=== PATIENT | male | born 1950 | race Caucasian/White ===

== ENCOUNTER 2018-12-23 12:07 | Emergency (ER) ==
[2018-12-23 12:18] VITALS: BP 150/81; TEMP 99.9
[2018-12-23 12:35] VITALS: BMI 35.6
--- NOTE | 2018-12-23 12:55 | DI ---
EXAM: Three views of the right elbow. History: Right elbow trauma. Findings: Suboptimal lateral view. No acute fracture or dislocation. Mild narrowing of the elbow j oint with small osteophytes. No radiopaque foreign bodies. No obvious joint effusion. Impression: No acute osseous abnormality
--- NOTE | 2018-12-23 13:25 | CT ---
EXAM: CT of the head without contrast History: Head trauma. Technique: Multiplanar CT images through the head were obtained without the administration of IV con trast Findings: The visualized paranasal sinuses and mastoid air cells are clear in general. No acute inga varial abnormalities. Intracranially the ventricular and cisternal spaces are normal in size, shape and configuration for a patient of this age. No dominant mass or midline shift. No hydrocephalous. No acute intracranial hemorrhage. Benign CSF containing space within the posterior fossa could represent arachnoid cyst or a constanza cisterna magna, a developmental variant. Impression: No acute intracranial process
--- NOTE | 2018-12-23 13:32 | CT ---
EXAM: CT of the chest without contrast History: Chest trauma. Technique: Multiplanar CT images through the thorax were obtained without the administration of IV c ontrast Findings: Heart is borderline enlarged. No pericardial effusion. Coronary calcifications. Sternot ashley wires. No axillary lymphadenopathy. No pathologically enlarged mediastinal lymph nodes. Evalua tion for hilar lymph nodes is limited due to the lack of contrast administration. No pneumothorax. There is left-sided pleural thickening or scarring with associated areas of plate-like atelectasis. No acute infiltrates. Within the visualized upper abdomen. No acute findings. No acute osseous abnormalities. Right shou lder arthroplasty. Impression: 1. No acute traumatic injury identified within the thorax. 2. Chronic left pleural thickening or scarring with associated areas of adjacent subsegmental atelec tasis.
--- NOTE | 2018-12-23 13:37 | CT ---
EXAM: CT of the cervical spine without contrast History: Head and neck trauma. Technique: Multiplanar CT images through the cervical spine were obtained without the administration of IV contrast Findings: The upper lungs are clear. Visualized airway remains patent. Atherosclerotic vascular ca lcifications. No acute fracture or subluxation of the cervical spine. No prevertebral soft tissue swelling. Prede ntal space is not widened. Severe disc space narrowing at C5-6 and C6-7 with endplate sclerosis and osteophyte formation. Moderate to severe disc space narrowing C3-4. Bony spinal canal is not signif icantly compromised. Moderate to severe multilevel bilateral bony neural foraminal narrowing seconda ry to uncovertebral and facet hypertrophy. Impression: No acute osseous abnormality of the cervical spine. Degenerative changes
--- NOTE | 2018-12-23 13:39 | CT ---
EXAM: CT of the pelvis without contrast History: Pelvic trauma. Technique: Multiplanar CT images through the pelvis were obtained without the administration of IV c ontrast Findings: Colonic diverticulosis. The appendix is normal. No perirectal inflammation. Prostate is not enlarged. Multiple bladder diverticuli with the largest measuring 3.4 cm posteriorly. No acute fracture or dislocation. Degenerative changes within the lower lumbar spine. Impression: 1. No acute osseous abnormality. 2. Multiple bladder diverticula. 3. Colonic diverticulosis
--- NOTE | 2018-12-23 13:42 | CT ---
Exam: CT thoracic spine HISTORY: Fell yesterday. Procedures: 3 mm contiguous axial images were obtained through the thoracic spine without the use of contrast. Sagittal and coronal reformatted images were also created and reviewed. Findings: The thoracic spine demonstrates diffuse multilevel degenerative disease with no acute frac ture or listhesis. There is no osseous erosion or radiodense foreign body. Please refer to the dedi cated CT chest for details regarding any tissues beyond the thoracic spine. There is no paraspinal f luid collection. No central spinal canal stenosis is visualized. There is no significant neural for aminal stenosis. Impressions: Multilevel mild degenerative disease in the thoracic spine with no acute fracture or li sthesis. Findings were faxed to the emergency department at 1:25 p.m.
--- NOTE | 2018-12-23 13:42 | CT ---
EXAM: CT of the lumbar spine without contrast History: Lower back trauma. Comparison: CT thoracic spine 12/23/2018 Technique: Multiplanar CT images through the lumbar spine were obtained without the administration o f IV contrast Findings: Colonic diverticulosis. Multiple bladder diverticuli. Atherosclerotic vascular calcifica tions. No acute fracture or subluxation of the lumbar spine. Severe disc space narrowing at L4-L5. Moderat e disc space narrowing at L3-L4 and L5-S1 with endplate sclerosis, osteophyte formation and vacuum di sc phenomenon. Mild to moderate central canal stenosis at L3-L4 and L4-L5 secondary to posterior dis c osteophyte complexes. Impression: No acute osseous abnormality of the lumbar spine
--- NOTE | 2018-12-23 13:46 | ED.PDOC ---
General ED Provider: Dr. BRIANNE FRYE Chief Complaint: Fall Stated Complaint: fall today denied syncope c/o back , right elbow pain Time Seen by Physician: 12:10 Mode of Arrival: Wheelchair Information Source: Patient Exam Limitations: No limitations Primary Care Provider: CONOR PR Nursing and Triage Documentation Reviewed and Agree: Yes Does patient meet sepsis criteria?: No System Inflammatory Response Syndrome: Not Applicable Sepsis Protocol: For patient's 13 years and over: Temp is 96.8 and below OR 101 and greater Pulse >90 BPM Resp >20/minute Acutely Altered Mental Status Are patient's symptoms suggestive of a new infection, such as: -Pneumonia -Skin, Soft Tissue -Endocarditis -UTI -Bone, Joint Infection -Implantable Device -Acute Abdominal Infection -Wound Infection -Meningitis -Blood Stream Catheter Infection -Unknown Trauma/Injury Complaint Exam - Trauma Complaint/Exam Location of Pain or Injury: Reports: Head, Neck, RUE (elbow), Chest, Back Mechanism of Injury: Reports: Fall Symptoms Are: Still present Initial Severity: Mild Current Severity: Mild Character: Reports: Aching Aggravating: Reports: None Alleviating: Reports: None Associated Signs and Symptoms: Denies: LOC, Confusion, Memory loss, Lethargy, Vomiting, Bleeding, Bruising, Swelling, Extremity disuse, Painful respiration, Hoarseness, Dysphagia, Hemoptysis, Significant blood loss Related History: Reports: Similar episode Penetrating Injury Risk Factors: Reports: None Nexus Low Risk Criteria: No evidence of intoxicat., No Altered LOC, No focal neuro deficit, No distracting injuries Immobilization Removed Post Exam: No Glascow Coma Scale (see protocol): 15 Trauma Findings: Present: Neck tenderness Skin Findings: Present: Normal findings Differential Diagnoses: Sprain, Strain Review of Systems - Review Of Systems Constitutional: Reports: No symptoms Eyes: Reports: No symptoms Ears, Nose, Mouth, Throat: Reports: No symptoms Respiratory: Reports: No symptoms Cardiac: Reports: No symptoms GI: Reports: No symptoms : Reports: No symptoms Musculoskeletal: Reports: Back pain Skin: Reports: No symptoms Neurological: Reports: No symptoms Endocrine: Reports: No symptoms Hematologic/Lymphatic: Reports: No symptoms All Other Systems: Reviewed and Negative Past Medical History - Past Medical History Previously Healthy: Yes Endocrine: Reports: None Cardiovascular: Reports: None Respiratory: Reports: None Hematological: Reports: None Gastrointestinal: Reports: None Genitourinary: Reports: None Neuro/Psych: Reports: Other (M.S.) Musculoskeletal: Reports: None Cancer: Reports: None - Surgical History General Surgical History: Reports: None - Family History Family History: Reports: None - Social History Smoking Status: Former smoker Hx Substance Use: No Alcohol Screening: None - Immunizations Tetanus Shot up to Date: Yes Physical Exam - Physical Exam Appearance: Well-appearing, No pain distress, Well-nourished Eyes: TATE, EOMI, Conjunctiva clear ENT: Ears normal, Nose normal, Oropharynx normal Respiratory: Airway patent, Breath sounds clear, Breath sounds equal, Respirations nonlabored Cardiovascular: RRR, Pulses normal, No rub, No murmur GI/: Soft, Nontender, No masses, Bowel sounds normal, No Organomegaly Musculoskeletal: Normal strength, ROM intact, No edema, No calf tenderness Skin: Warm, Dry, Normal color Neurological: Sensation intact, Motor intact, Reflexes intact, Cranial nerves intact, Alert, Oriented Psychiatric: Affect appropriate, Mood appropriate Interpretation - Radiology Interpretation Radiology Interpretation By: Radiologist Radiology Results: No acute changes Critical Care Note - Critical Care Note Total Time (mins): 0 Course - Course Orders, Labs, Meds: Orders Category Date Time Status CT CERVICAL SPINE W/O CONTRAST Stat RADS 12/23/18 12:[address] CHEST W/O CONTRAST Stat RADS 12/23/18 12:[address] HEAD W/O CONTRAST Stat RADS 12/23/18 12:[address] LUMBAR SPINE W/O CONTRAST Stat RADS 12/23/18 12:[address] PELVIS W/O CONTRAST Stat RADS 12/23/18 12:[address] THORACIC SPINE W/O CONTRAST Stat RADS 12/23/18 12:28 Ordered ELBOW, RIGHT MIN 3 VIEWS Stat RADS 12/23/18 12:28 Ordered Vital Signs: Temp Pulse Resp BP Pulse Ox 12/23/18 12:10 99.9 F H 76 20 150/81 H 96 Departure - Departure Time of Disposition: 13:47 Disposition: HOME SELF-CARE Discharge Problem: Elbow pain, right Neck sprain Qualifiers: Encounter type: initial encounter Qualified Code(s): S13.9XXA - Sprain of joints and ligaments of unspecified parts of neck, initial encounter Low back sprain Qualifiers: Encounter type: initial encounter Qualified Code(s): S33.5XXA - Sprain of ligaments of lumbar spine, initial encounter Instructions: Elbow Sprain (ED) Condition: Good Pt referred to PMD for follow-up: Yes IPMP verified?: No Additional Instructions: Please call your Family Physician as soon as possible to schedule a follow-up appointment. Allergies/Adverse Reactions: Allergies aspirin Adverse Reaction (Verified 12/23/18 12:09) garlic Adverse Reaction (Verified 12/23/18 12:09) lisinopril Adverse Reaction (Verified 12/23/18 12:09)
== END 2018-12-23 14:05 | disposition home or self-care (01) ==
LOC: ED 12:07
DX: M25.521 Pain in right elbow (principal); S13.9XXA Sprain of joints and ligaments of unspecified parts of neck, initial encounter; S33.5XXA Sprain of ligaments of lumbar spine, initial encounter; W19.XXXA Unspecified fall, initial encounter
CPT/HCPCS: 99283

== ENCOUNTER 2019-02-12 16:44 | Emergency (ER) | payer OTHER ==
[2019-02-12 16:52] VITALS: BP 118/96; TEMP 98.1; BMI 30.4
--- NOTE | 2019-02-12 17:27 | ED.PDOC ---
General ED Provider: Dr. ALEXANDRU VILLASEÑOR Chief Complaint: Stroke Stated Complaint: patient states his vision has been slanted and blurred and he was disoriented. states couldn't remember what day it was or the year. states it went on all day. states he had some pain in his chest and he took a nitro. states vision got better during the night then today around 0900 his vision changed again. states things were out of focus. states has a steady throb to frontal area that goes to back of head. patient states he called his home nurse and she told him to come to er on saturday but he did not. states he didn't think he needed to. Time Seen by Physician: 17:10 Mode of Arrival: Wheelchair Information Source: Patient Primary Care Provider: CONOR TRIVEDI Nursing and Triage Documentation Reviewed and Agree: Yes Does patient meet sepsis criteria?: No System Inflammatory Response Syndrome: Not Applicable Sepsis Protocol: For patient's 13 years and over: Temp is 96.8 and below OR 101 and greater Pulse >90 BPM Resp >20/minute Acutely Altered Mental Status Are patient's symptoms suggestive of a new infection, such as: -Pneumonia -Skin, Soft Tissue -Endocarditis -UTI -Bone, Joint Infection -Implantable Device -Acute Abdominal Infection -Wound Infection -Meningitis -Blood Stream Catheter Infection -Unknown Review of Systems - Review Of Systems Constitutional: Reports: Weakness Eyes: Reports: Blurred vision, Vision change, Decreased acuity Ears, Nose, Mouth, Throat: Reports: No symptoms Respiratory: Reports: No symptoms Cardiac: Reports: No symptoms GI: Reports: No symptoms : Reports: No symptoms Musculoskeletal: Reports: No symptoms Skin: Reports: No symptoms Neurological: Reports: Emotional problems, Cognitive dysfunction, Tingling, Weakness, Other (Leg braces bilaterally ) Endocrine: Reports: No symptoms Hematologic/Lymphatic: Reports: No symptoms All Other Systems: Reviewed and Negative Past Medical History - Past Medical History Previously Healthy: Yes Endocrine: Reports: None Cardiovascular: Reports: None Respiratory: Reports: None Hematological: Reports: None Gastrointestinal: Reports: None Genitourinary: Reports: None Neuro/Psych: Reports: Other (M.S.) Musculoskeletal: Reports: None Cancer: Reports: None - Surgical History General Surgical History: Reports: None - Family History Family History: Reports: None - Social History Smoking Status: Former smoker Hx Substance Use: No Alcohol Screening: None Physical Exam - Physical Exam Appearance: Ill-appearing, Obese Ill-appearing: Mild Pain Distress: Mild Eyes: TATE, EOMI, Conjunctiva clear ENT: Ears normal, Nose normal, Oropharynx normal Neck: Supple Respiratory: Airway patent, Breath sounds clear, Breath sounds equal, Respirations nonlabored Cardiovascular: RRR, Pulses normal, No rub, No murmur GI/: Soft, Nontender, No masses, Bowel sounds normal, No Organomegaly Musculoskeletal: Normal strength (no unequal hemiparesis) Skin: Warm, Dry, Normal color Neurological: Sensation intact, Cranial nerves intact, Alert, Oriented (TO TIME , PLACE and circumstances) Critical Care Note - Critical Care Note Total Time (mins): 60 Course - Course Hematology/Chemistry: 02/12/19 17:47 02/12/19 17:47 Orders, Labs, Meds: Lab Review 02/12/19 02/12/19 17:47 17:47 WBC 6.07 RBC 4.03 L Hgb 11.5 L Hct 35.8 L MCV 88.8 MCH 28.5 MCHC 32.1 RDW Coeff of Michele 14.1 Plt Count 194 Immature Gran % (Auto) 0.3 Neut % (Auto) 62.3 Lymph % (Auto) 19.3 Norton % (Auto) 7.4 Eos % (Auto) 10.2 H Baso % (Auto) 0.5 Immature Gran # (Auto) 0.0 Neut # (Auto) 3.8 Lymph # (Auto) 1.2 Norton # (Auto) 0.5 Eos # (Auto) 0.6 Baso # (Auto) 0.0 Sodium 140.4 Potassium 3.64 Chloride 108.6 H Carbon Dioxide 22.3 Anion Gap 13.14 BUN 13.9 Creatinine 1.29 H Estimated GFR (MDRD) 55.00 BUN/Creatinine Ratio 10.77 Glucose 167.3 H Uric Acid 5.79 Calcium 9.01 Magnesium 1.98 Total Bilirubin 0.46 AST 18.7 ALT 6.3 Alkaline Phosphatase 101.6 Total Creatine Kinase 40.4 L Troponin I 0.013 Total Protein 7.08 Albumin 4.06 Globulin 3.02 Albumin/Globulin Ratio 1.34 Orders Category Date Time Status EKG-(ED ONLY) Stat CARDIO 02/12/19 18:32 Completed CBC W/ AUTO DIFF Stat LAB 02/12/19 17:47 Completed CMP [COMPREHENSIVE METABOLIC PANEL] Stat LAB 02/12/19 17:47 Completed CPK [CREATINE KINASE] Stat LAB 02/12/19 17:47 Completed MAGNESIUM Stat LAB 02/12/19 17:47 Completed TROPONIN I Stat LAB 02/12/19 17:47 Completed UA [URINALYSIS C & S IF INDICATED] Stat LAB 02/12/19 17:32 Uncollected URIC ACID Stat LAB 02/12/19 17:47 Completed 0.9 % Sodium Chloride [Saline Flush] MEDS 02/12/19 17:47 Ordered 1 syr IVF PRN PRN CHEST, 1V AP ONLY Stat RADS 02/12/19 17:[address] HEAD W/O CONTRAST Stat RADS 02/12/19 17:47 Completed Medications Generic Name Dose Route Start Last Admin Trade Name Freq PRN Reason Stop Dose Admin Sodium Chloride 1 syr 02/12/19 17:47 Saline Flush IVF PRN PRN To flush IV Vital Signs: Temp Pulse Resp BP Pulse Ox 02/12/19 16:45 98.1 F 70 20 118/96 H 97 Departure - Departure Time of Disposition: 20:50 Disposition: HOME SELF-CARE Discharge Problem: Multiple sclerosis, Hypertension, TIA (transient ischemic attack) Condition: Fair Pt referred to PMD for follow-up: Yes ([facility]) IPMP verified?: No Allergies/Adverse Reactions: Allergies aspirin Adverse Reaction (Verified 02/12/19 16:52) garlic Adverse Reaction (Verified 02/12/19 16:52) lisinopril Adverse Reaction (Verified 02/12/19 16:52) Home Medications: Ambulatory Orders Acetaminophen [Tylenol] 650 mg PO Q6HR PRN 12/23/18 Albuterol Sulfate 0.083% Neb [Albuterol 0.083% Neb] 1 vial NEB RTQ4H 12/23/18 Amantadine HCl [Amantadine] 100 mg PO BID 12/23/18 Amlodipine Besylate 5 mg PO DAILY 12/23/18 Aripiprazole 7.5 mg PO BEDTIME 12/23/18 Atenolol 12.5 mg PO DAILY 12/23/18 Budesonide/Formoterol Fumarate [Symbicort 160-4.5 Mcg Inhaler] 2 puff IH BID Carbidopa/Levodopa [Carbidopa-Levo ER 50-200 Tab] 1 each PO BID 12/23/18 Carboxymethylcellulos/Glycerin [Refresh Optive Gel Eye Drops] 1 drop OP Q1-2H PRN 12/23/18 Cholecalciferol (Vitamin D3) [Vitamin D3] 2,000 unit PO DAILY 12/23/18 Clopidogrel Bisulfate [Plavix] 75 mg PO DAILY 12/23/18 Epinephrine [Epipen] 0.3 mg IJ ONCE PRN 12/23/18 Fluoxetine HCl 20 mg PO DAILY 12/23/18 Folic Acid 1 mg PO BID 12/23/18 Gabapentin 400 mg PO TID 12/23/18 Insulin Glargine,Hum.rec.anlog [Basaglar Kwikpen U-100] 34 unit SQ DAILY Ipratropium/Albuterol Sulfate [Combivent Respimat Inhal Sabinal] 1 spray IH QID Levetiracetam 250 mg PO BID 12/23/18 Levothyroxine Sodium [Synthroid] 25 mcg PO DAILY 12/23/18 Loperamide HCl [Imodium A-D] 2 mg PO DAILY PRN 12/23/18 Magnesium Oxide [Magnesium] 400 mg PO DAILY 12/23/18 Metformin HCl 500 mg PO DAILY 12/23/18 Nitroglycerin 0.4 mg SL DAILY PRN 12/23/18 Omeprazole 40 mg PO DAILY 12/23/18 Polyethylene Glycol 3350 1 applic PO DAILY 12/23/18 Pravastatin Sodium [Pravachol] 40 mg PO DAILY 12/23/18 Propylene Glycol/Peg 400 [Lubricating Rlf 0.3-0.4% Eye] 1 strip OP BEDTIME 12/23 Tobramycin/Dexamethasone [Tobradex Eye Drops] 1 drop OP TID 12/23/18 Topiramate [Topamax] 50 mg PO BID 12/23/18 Trazodone HCl 50 mg PO BEDTIME 12/23/18 Disposition Discussed With: Patient, Family, Other (Dr Fairbanks) Additional Comments Additional Comments: Discussed Case with Dr Victoria for poss admit observation. TIA/MS Flare/No groundd of admission/ Dr Fairbanks pts PCP through [facility]- here/ concurs with need for admission and Neurologogical conslt.Recommend transferring patient to [facility] for Neurological consult and MRI?MRA. Consulted Dr Mosquera Neuro. Agrees to accept pt for consult/Hospitalist to admit. Discussed with patient. Discussed with Dr Gandara-accepts patient. Advised RN
--- NOTE | 2019-02-12 18:26 | CT ---
EXAM: CT head without contrast HISTORY: Blurry vision COMPARISON: CT head 12/23/2018 TECHNIQUE: Serial axial images of the brain were obtained from the skull base to the vertex without IV contrast. FINDINGS: The ventricles, cisterns and sulci are stable with mild generalized volume loss and unchan ged prominent lateral ventricles. The rico-white matter junction is maintained. There is minimal sc attered low attenuation in the periventricular white matter.No midline shift or mass is identified. There is no abnormal intra or extra-axial fluid collection. The paranasal sinuses and mastoid air ce lls are clear. The osseous calvarium is intact. IMPRESSION: 1. No acute intracranial abnormality or hemorrhage. If further evaluation is indicated, MRI may be obtained. 2. Mild generalized volume loss and mild scattered microangiopathy.
--- NOTE | 2019-02-12 18:29 | DI ---
EXAM: Single view of the chest HISTORY: Chest congestion. COMPARISON: CT chest 12/23/2018 FINDINGS: Cardiomediastinal silhouette is upper limit of normal and unchanged with stable sternotomy wires. There is no pneumothorax. There is mild blunting left costophrenic angle with left pleural t hickening versus small lateral effusion. The right lung is clear. The osseous structures are unrema rkable and right shoulder arthroplasty hardware. IMPRESSION: 1. Small left effusion with questionable adjacent atelectasis versus consolidation and lateral pleur al thickening. 2. No change in mildly enlarged cardiomediastinal silhouette.
== END 2019-02-12 22:10 | disposition home or self-care (01) ==
LOC: ED 16:44
DX: G45.9 Transient cerebral ischemic attack, unspecified (principal); I10 Essential (primary) hypertension; G35 Multiple sclerosis; Z79.899 Other long term (current) drug therapy
CPT/HCPCS: 36415; 80053; 82550; 83735; 84484; 84550; 85025; 93005; 93010; 99285

== ENCOUNTER 2019-02-12 22:15 | Outpatient (CLI) ==
[2019-02-12 16:52] VITALS: BMI 30.4
== END 2019-02-12 22:35 | disposition short-term general hospital (02) ==
LOC: AMBL 22:15
PROVIDERS: ATTEND Internal Medicine Geriatric Medicine
DX: G45.9 Transient cerebral ischemic attack, unspecified (principal); I48.91 Unspecified atrial fibrillation

== ENCOUNTER 2019-04-30 20:42 | Outpatient (CLI) | payer OTHER | END 2019-04-30 20:59 | disposition short-term general hospital (02) | LOC: AMBL 20:42 | PROVIDERS: ATTEND Internal Medicine Geriatric Medicine | DX: M54.2 Cervicalgia (principal); S06.9X9A Unspecified intracranial injury with loss of consciousness of unspecified duration, initial encounter; S49.92XA Unspecified injury of left shoulder and upper arm, initial encounter; S50.311A Abrasion of right elbow, initial encounter; V00.811A Fall from moving wheelchair (powered), initial encounter; R00.1 Bradycardia, unspecified; G35 Multiple sclerosis; E11.9 Type 2 diabetes mellitus without complications ==